=== PATIENT | male | born 1970 | race Caucasian/White ===

== ENCOUNTER 2019-05-13 06:42 | Emergency (ER) | payer OTHER ==
[~2019-05-13] VITALS: Ht 177.8 cm; Wt 99.8 kg
[~2019-05-13 06:42] MED LIST: ADVAIR HFA 230M12 GM INH; CELEXA20 MG PO; HYDROCODONE-APA1 TA1 PO; LAMICTAL100 MG PO; LISINOPRIL20 MG PO; MEN'S MULTI-VI1 EACH PO; NEXIUM40 MG PO; ONDANSETRON HCL4 M2 PO; PROAIR HFA8.5 GM INH; SPIRIVA INH; ZYRTEC10 M4 PO
[2019-05-13] MEDS ORDERED: OMEPRAZOLE40 MG PO (06:59)
[2019-05-13] MEDS ORDERED: LISINOPRIL-HCT1 EAC1 PO (07:01)
[2019-05-13 07:44] LABS: ABSOLUTE NEUTROPHILS 5.9 thou/uL (1.4-8.2); BASOPHILS 0.9 % (0.0-2.0); HEMATOCRIT 40.7 % (42.0-52.0); HEMOGLOBIN 13.5 gm/dL (14.0-18.0); LYMPHOCYTES 17.3 % (24.0-44.0); MCH 28.9 pg (26.0-34.0); MCHC 33.2 g/dL (28.0-37.0); MCV 87.1 fL (80.0-100.0); MONOCYTES 8.9 % (1.0-8.0); PLATELET COUNT 311 thou/uL (150-400); POLYS 67.9 % (36.0-66.0); RBC 4.67 mil/uL (4.50-6.00); RDW 12.6 % (10.5-14.5); WBC 8.7 thou/uL (4.0-11.0)
[2019-05-13 07:47] LABS: URINE BILIRUBIN NEGATIVE (Negative); URINE BLOOD NEGATIVE (Negative); URINE CLARITY CLEAR; URINE COLOR YELLOW; URINE GLUCOSE-RANDOM* NEGATIVE (Negative); URINE KETONES NEGATIVE (Negative); URINE LEUKOCYTES-REFLEX NEGATIVE (Negative); URINE NITRITE-REFLEX NEGATIVE (Negative); URINE PROTEIN (DIPSTICK) NEGATIVE (Negative); URINE SPECIFIC GRAVITY 1.025 (1.005-1.035); URINE UROBILINOGEN 0.2 E.U./dl (0.2-1.0)
[2019-05-13 07:51] LABS: ANION GAP 5 mmol/L (7-16); BUN 14 mg/dL (7-18); CALCIUM 8.2 mg/dL (8.5-10.1); CHLORIDE 105 mmol/L (98-107); CO2 26 mmol/L (21-32); GLUCOSE 126 mg/dL (74-106); POTASSIUM 4.1 mmol/L (3.5-5.1); SODIUM 136 mmol/L (136-145)
[2019-05-13 07:59] LABS: DIRECT BILIRUBIN < 0.1 mg/dL (<0.1-0.3); LIPASE 108 U/L (73-393); SGOT 10 U/L (15-37); SGPT 21 U/L (30-65); TOTAL BILIRUBIN 0.1 mg/dL (<0.1-1.0); TOTAL PROTEIN 6.7 g/dL (6.4-8.2)
[2019-05-13] MEDS ORDERED: NORCO 5-325 TA1 EAC1 PO (10:14)
[2019-05-13] MEDS ORDERED: ZOFRAN ODT4 MG PO (10:14)
[2019-05-13] MEDS ORDERED: NAPROSYN500 MG PO (10:14)
[2019-05-13 10:17] VITALS: BP 105/71
== END 2019-05-13 10:18 | disposition home or self-care (01) ==
LOC: ER 06:42
PROVIDERS: Emergency Medicine
DX: R10.31 Right lower quadrant pain (principal); J45.909 Unspecified asthma, uncomplicated; K21.9 Gastro-esophageal reflux disease without esophagitis; F32.9 Major depressive disorder, single episode, unspecified; F17.210 Nicotine dependence, cigarettes, uncomplicated; Z87.442 Personal history of urinary calculi; Z90.49 Acquired absence of other specified parts of digestive tract; Z90.89 Acquired absence of other organs

== ENCOUNTER 2019-05-15 17:33 | Inpatient (IN) | payer OTHER ==
[~2019-05-15] VITALS: Ht 152.4 cm; Wt 102.5 kg
[2019-05-15 17:33] VITALS: BP 117/92
[~2019-05-15 17:33] MED LIST changes: -ACETAMINOPHEN325 M1 PO; -IBUPROFEN 200200 M1 PO; -OXYCODONE HCL10 MG PO
[2019-05-15 18:32] LABS: ABSOLUTE NEUTROPHILS 5.4 thou/uL (1.4-8.2); BASOPHILS 0.8 % (0.0-2.0); EOSINOPHILS 4.2 % (0.0-3.0); HEMATOCRIT 42.2 % (42.0-52.0); LYMPHOCYTES 26.1 % (24.0-44.0); MCH 28.9 pg (26.0-34.0); MCHC 33.1 g/dL (28.0-37.0); MCV 87.3 fL (80.0-100.0); MONOCYTES 8.5 % (1.0-8.0); PLATELET COUNT 349 thou/uL (150-400); POLYS 60.4 % (36.0-66.0); RBC 4.84 mil/uL (4.50-6.00); RDW 12.7 % (10.5-14.5)
[2019-05-15 18:37] LABS: URINE BILIRUBIN NEGATIVE (Negative); URINE BLOOD NEGATIVE (Negative); URINE CLARITY CLEAR; URINE COLOR YELLOW; URINE GLUCOSE-RANDOM* NEGATIVE (Negative); URINE KETONES NEGATIVE (Negative); URINE LEUKOCYTES-REFLEX NEGATIVE (Negative); URINE NITRITE-REFLEX NEGATIVE (Negative); URINE PROTEIN (DIPSTICK) NEGATIVE (Negative); URINE SPECIFIC GRAVITY <= 1.005 (1.005-1.035); URINE UROBILINOGEN 0.2 E.U./dl (0.2-1.0)
[2019-05-15 18:47] LABS: CALCIUM 9.4 mg/dL (8.5-10.1); CREATININE 1.2 mg/dL (0.7-1.3); POTASSIUM 4.1 mmol/L (3.5-5.1)
[2019-05-15 18:53] LABS: ALBUMIN 3.5 g/dL (3.4-5.0); TOTAL BILIRUBIN 0.2 mg/dL (<0.1-1.0); TOTAL PROTEIN 7.8 g/dL (6.4-8.2)
[2019-05-15 21:44] VITALS: BP 115/76
[2019-05-15 22:01] VITALS: BP 115/76
[2019-05-15 22:14] VITALS: BP 122/87
[2019-05-16] VITALS (8 sets, daily range): BP systolic 113–128; BP diastolic 77–93
--- NOTE | 2019-05-16 04:06 | NUR ---
admit Pt admitted for appendicitis, to have lap appy later this afternoon. Pt oriented to room, call light system and plan of care. Ivf's infusing as ordered. Pt has a clear liquid diet ordered tolerating in small amounts. denies pain or need for pain medication or tylenol. scd's and isp supplied to educate on use when pt wakes. voiding qs, afebrile, vs wnl.
[2019-05-16 05:47] LABS: HEMATOCRIT 39.9 % (42.0-52.0); HEMOGLOBIN 13.4 gm/dL (14.0-18.0); MCH 29.3 pg (26.0-34.0); MCHC 33.6 g/dL (28.0-37.0); MCV 87.1 fL (80.0-100.0); RBC 4.59 mil/uL (4.50-6.00); RDW 12.7 % (10.5-14.5)
[2019-05-16 06:18] LABS: ALBUMIN 3.1 g/dL (3.4-5.0); CALCIUM 8.5 mg/dL (8.5-10.1); MAGNESIUM 2.1 mg/dL (1.8-2.4); PHOSPHORUS 4.5 mg/dL (2.5-4.9)
--- NOTE | 2019-05-16 10:12 | NUR ---
Nutrition: Assessed due to consult for "surgery". Admit: abdominal pain, rule out appendicitis. Pt to have surgery later today for lap appendectomy. Was previously on clear liquid diet leading up to surgery; now NPO. Per daily 12/12 labs, K+, Mag, and Phos electrolytes all WNL. RD educated pt on oral nutrition supplement that is compatible with clear liquid diet if able to resume diet when medically indicated/safe per provider discretion pending return of GI function s/p surgery. Also instructed pt on general healthy nutrition and foods to choose post surgery. Pt had no nutrition concerns or further questions/education needs. Will keep as low nutrition risk, but monitor for any prolonged NPO status.
--- NOTE | 2019-05-16 12:49 | NUR ---
PT JUST TAKEN DOWN FOR SURGERY.
[2019-05-16] MEDS ORDERED: ACETAMINOPHEN325 M1 PO (14:11)
[2019-05-16] MEDS ORDERED: OXYCODONE HCL10 MG PO (14:11)
[2019-05-16] MEDS ORDERED: IBUPROFEN 200200 M1 PO (14:11)
--- NOTE | 2019-05-16 14:41 | NUR ---
PT ADMITTED RELATED TO APPENDICITIS. CM REVIEWED CHART AND SPOKE WITH CARE TEAM. CM MET WITH PT AT BEDSIDE THIS DAY. PT IS A&O X4. CM ROLE INTRODUCED. PT INDICATED HE LIVES IN A HOUSE WITH HIS SIG OTHER WITH 6 STEPS TO ENTER AND NO STEPS INSIDE. 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 PT INDICATED NO DME OR HH SERVICES. PT INDICATED HE PLANS TO RETURN HOME ONCE MEDICALLY STABLE. CM TO FOLLOW INIDCIATED WITH DC PLANNING.
--- NOTE | 2019-05-20 15:27 | H ---
[facility] [place] [address] [place] [address] HISTORY AND PHYSICAL Name: ALESSANDRA PERRY Javier Room #: 449-I [facility] IN M.R.#: [id number] Admission: 05/15/19 Attend Phys: Slava Etienne MD Discharge: 05/16/19 Date of : 70 Report #: [id number] THIS REPORT FOR: //name// CC: Slava Crisostomo DATE OF SERVICE: 05/15/2019 CONSULTING PHYSICIAN: Dr. Etienne. CHIEF COMPLAINT: Abdominal pain. HISTORY OF PRESENT ILLNESS: The patient is a pleasant 49-year-old gentleman who developed right lower quadrant abdominal pain on Monday. He presented to the ER and a CT scan was performed, demonstrated dilated appendix, but no periappendiceal inflammation. He was discharged home. The patient was seen by PCP today and a CT scan was ordered that redemonstrated dilated appendix and he suggested he come to the ER. Per the patient, he developed abdominal pain on Monday in the right lower quadrant. It was sharp and constant. He cannot recall any exacerbating or relieving factors. The pain worsened on Monday and again on Monday. That is when he presented to the ER. He denies any nausea or vomiting. He denies fevers, chills, night sweats, chest pain. He endorses chronic shortness of air to his smoking history. No exacerbation recently. He does endorse feeling like he was constipated, so he tried a bowel regimen on his own and had a successful bowel movement without resolution of the pain. He denies any blood within the stool as well. PAST MEDICAL HISTORY: 1. Hypertension. 2. Asthma. 3. Obesity. 4. Anxiety. PAST SURGICAL HISTORY: 1. Cholecystectomy. 2. Umbilical hernia repair. SOCIAL HISTORY: Previous smoker, he quit in 2016 and now he only vapes. He endorses drinking socially. Denies any recreational drug use. 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 FAMILY HISTORY: Grandparent with leukemia. He denies any bleeding or clotting disorders in his family. [facility] [address] [place] [address] HISTORY AND PHYSICAL Name: ORLANDOALESSANDRA Room #: 449-I [facility] IN ..#: [id number] Admission: 05/15/19 Attend Phys: Slava Etienne MD Discharge: 05/16/19 Date of : 70 Report #: [id number] REVIEW OF SYSTEMS: CONSTITUTIONAL: No fever. No chills. HEENT: Denies blurring of vision, double vision, headaches, hearing loss, sinus drainage or sore throat. Denies blurring of vision, double vision, headaches, hearing loss, sinus drainage or sore throat. CARDIOVASCULAR: Denies chest pain, palpitations, orthopnea or paroxysmal nocturnal dyspnea. RESPIRATORY: Denies cough, wheezing, hemoptysis, or shortness of air. GASTROINTESTINAL: See above and below. GENITOURINARY: Denies dysuria or hematuria or kidney stones. No urinary frequency, urgency or incontinence. Denies dysuria or hematuria or kidney stones. No urinary frequency, urgency or incontinence. MUSCULOSKELETAL: No joint pain. No muscle pain. NEUROLOGICAL: Denies tremor, stroke or seizure. Denies tremor, stroke or seizure. HEMATOLOGIC / LYMPHATICS: Denies easy bruising, easy bleeding or enlarged lymph nodes. SKIN: No rash or ulceration. ENDOCRINE: No heat or cold intolerance PSYCHIATRIC: Denies depression, anxiety, or schizophrenia. PHYSICAL EXAMINATION: VITAL SIGNS: Temperature is 36.6, blood pressure is 117/92, pulse ox is 95% on room air, heart rate is 73, respiratory rate 19. GENERAL: No apparent distress, alert and oriented x3. HEENT: PERRLA, EOMI, MMM, NCAT NECK: Supple. No LAD CARDIOVASCULAR: Regular rhythm and rate. Hemodynamically stable. Normal capillary refill. Regular rhythm and rate. Hemodynamically stable. Normal capillary refill. PULMONARY: Nonlabored. Clear to auscultation bilaterally ABDOMEN: Patient is soft, tender to palpation exquisitely in the right lower quadrant, positive Rovsing sign. Positive voluntary guarding in the right lower quadrant. Otherwise, nondistended without guarding, rebound or rigidity in the other quadrants. No obvious hernias appreciated. EXTREMITIES: Calves soft, nontender, no edema. SKIN: No rashes or bruises. PSYCHIATRIC: Normal mood and affect Normal mood and affect NEUROLOGICAL: Grossly intact. CN II-XII grossly intact. MUSCULOSKELETAL: 5/5 strength in upper extremities and lower extremities bilaterally LYMPHATICS: No cervical, inguinal, or supraclavicular lymphadenopathy. LABORATORY DATA: Sodium is 139, potassium 4.1, creatinine 1.2, total bilirubin 0.2, AST 15, ALT 24, alkaline phosphatase is 87, albumin 3.5, lipase is 128. White count is 9, hemoglobin is 14, hematocrit is 42.2, platelets are 349. [facility] [address] [place] [address] HISTORY AND PHYSICAL Name: ALESSANDRA PERRY Room #: 449-I [facility] IN Derrick#: [id number] Admission: 05/15/19 Attend Phys: Slava Etienne MD Discharge: 05/16/19 Date of : 70 Report #: [id number] Urinalysis is negative. IMAGING: CT of the abdomen and pelvis, impression, please see official report, but did demonstrate dilated appendix without periappendiceal fat stranding. ASSESSMENT AND PLAN: The patient is a very pleasant 49-year-old gentleman with abdominal pain and dilated appendix on CT scan. DIAGNOSES: 1. Probable acute appendicitis. 2. Abdominal pain. 3. Significant smoking history. 4. Asthma. 5. Hypertension. PLAN: 1. Admit to surgery. 2. Clear liquid diet. N.p.o. at midnight. 3. IV Rocephin and Flagyl. 4. Recheck labs in the morning. 5. IV fluid resuscitation while n.p.o. 6. Discussed differential diagnosis with the patient including acute appendicitis versus mesenteric lymphadenitis versus musculoskeletal versus other bowel etiology (IBS/inflammatory bowel disease/etc.). 7. Given the constellation of findings with his abdominal exam and dilated appendix on CT scan and his history being all consistent with appendicitis, I would recommend diagnostic laparoscopy with likely laparoscopic appendectomy. The patient and his were agreeable to this. <ELECTRONICALLY SIGNED> By: Slava Etienne MD 05/20/19 1527 23 Slava Etienne MD /nt
--- NOTE | 2019-05-20 15:27 | O ---
[facility] [place] [address] [place] [address] OPERATIVE REPORT Name: ALESSANDRA PERRY Javier Room #: 449-I [facility] IN M.R.#: [id number] Admission: 05/15/19 Attend Phys: Slava Etienne MD Discharge: 05/16/19 Date of : 70 Report #: [id number] THIS REPORT FOR: //name// CC: Slaav Crisostomo DATE OF SERVICE: 05/16/2019 PROCEDURE PERFORMED: Laparoscopic appendectomy. POSTOPERATIVE DIAGNOSIS: Acute appendicitis. POSTPROCEDURE DIAGNOSIS: Acute appendicitis. SURGEON: Dr. Etienne. RESIDENT ASSOCIATE: None. ANESTHESIA: 1. General. 2. Local. ESTIMATED BLOOD LOSS: Less than 5 mL. URINE OUTPUT: Not measured. COMPLICATIONS: None. FINDINGS: 1. The patient had a thickened, dilated appearing appendix with injected serosa concerning for acute appendicitis. 2. No other gross intra-abdominal abnormalities appreciated. SPECIMENS: Appendix. INDICATIONS: The patient presented twice now with abdominal pain and has had 2 CT scans, both demonstrating a dilated appendix. He was consented for laparoscopic appendectomy. The risks, benefits and alternatives of the procedure were discussed with the patient and the patient's . The risks discussed included but were not limited to the risk of bleeding, infection, conversion to open, missed diagnosis, not relieving his pain with surgery, wound infection, postoperative abscess, postoperative ileus, postoperative hernia, damage to any intraabdominal organ including small bowel, large bowel, stomach, kidney, liver, spleen, etc., blood vessels, nerves, anesthesia (cardiac, pulmonary, neurologic type complications), and . The patient had the opportunity to ask questions. All questions were answered to the best of my [facility] [address] [place] [address] OPERATIVE REPORT Name: ALESSANDRA PERRY Javier Room #: 449-I [facility] IN M.R.#: [id number] Admission: 05/15/19 Attend Phys: Slava Etienne MD Discharge: 05/16/19 Date of : 70 Report #: [id number]. At the end of the discussion, he did wish to proceed with surgery. DESCRIPTION OF PROCEDURE: After informed consent was obtained as above, the patient was taken to the operating room and placed in supine position. General anesthesia was induced. Preprocedure antibiotics were administered and anterior abdomen was prepped and draped in the usual sterile fashion. A timeout was performed. A 5 mm supraumbilical incision was made. After local anesthetic was injected, Veress needle was inserted. Pneumoperitoneum was created. A 5 mm port was passed and the laparoscope was inserted. There were no immediate gross abnormalities appreciated. Next, the following ports were placed in standard fashion after injection of local anesthetic under direct visualization and a 5 mm suprapubic port and a 12 mm left lower quadrant port. There were no adverse events while placing the ports. Next, the appendix was identified, it was grasped and pulled into the field of view. This was coming off medially and immediately. The appendix appeared as above. I do believe that this was likely a source of pain. There was a window made in the mesoappendix at the base of the cecum. A laparoscopic ANGELICA blue load stapler was used to transect the appendix at the base of the cecum. Hemostasis was present. Staple line was intact. Next, the mesoappendix was transected with a white load. This was done successfully and hemostasis was present. Before firing any staple load, it was determined that there was no terminal ileum or other critical structures within the grasp stapler each time and this was successful each time. The staple lines were closely inspected and found to be hemostatic and intact. The patient had no free fluid. The patient had no abscess, no perforation. The patient was hemostatic. Next, the appendix was passed into a laparoscopic retrieval bag and removed out the patient's 12 mm port site under direct visualization. The 12 mm port site was closed using a PMI device and laparoscopic technique using 0 Vicryl in interrupted fashion. The right lower quadrant was reinspected and found to be hemostatic. Pneumoperitoneum was released. The ports were removed. They were hemostatic. The skin was closed using 4-0 Monocryl in a subcuticular interrupted fashion. The abdomen was clean and dry and Dermabond was applied. The patient tolerated the procedure well. There were no adverse events throughout the course of procedure. <ELECTRONICALLY SIGNED> By: Slava Etienne MD 05/20/19 1527 1718 194 Slava Etienne MD /nt
--- NOTE | 2019-05-20 16:06 | PATH ---
[facility] [address] [place] [address] PATHOLOGY RPT PROCEDURE Name: TERENCE PERRY Room #: 449-I [facility] IN M.R.#: [id number] Admission: 05/15/19 Date of : 70 Discharge: 05/16/19 Report #: [id number] Path Case #: [id number] [facility] Accession Number: [id number] . 01 Material submitted: . appendix - APPENDIX . 01 Clinical history: . Acute appendicitis . 02 Diagnosis: Appendix, appendectomy: - Marked acute appendicitis associated with complete ulceration of the surface. - Fibrous obliteration of the entire tip. - Proximal margin showing no diagnostic abnormalities. (IUV:galen; 05/20/2019) QMS 05/20/2019 1434 Local . 02 Electronically signed: . Mayi Barnhart MD, Pathologist NPI- [id number] . 01 Gross description: . The specimen is received in formalin, labeled "Terence Perry, appendix" and consists of an appendix measuring 8.8 in length and up to 1.0 in diameter with mesoappendix measuring 2.3 thick. The serosa is pink-moctezuma smooth shiny. The margin is closed with a line of martha and inked black. Sectioning reveals a dilated lumen containing brown fecal material and no fecaliths. [employer] sections are submitted in A1. (SDY; 05/17/2019) SYU/SYU 05/17/2019 1156 Local . 02 Pathologist provided ICD-10: K35.80 . 02 CPT . 531166 Specimen Comment: A courtesy copy of this report has been sent to [phone], [phone] Specimen Comment: [phone] Specimen Comment: Report sent to and Performed at: [address] [id number] MD Golden Taylor MD Phone: [phone] Performed at: [address] [place] [address] [facility] [place] [address] PATHOLOGY RPT PROCEDURE Name: TERENCE PERRY Room #: 449-I [facility] IN M.R.#: [id number] Admission: 05/15/19 Date of : 70 Discharge: 05/16/19 Report #: [id number] Path Case #: [id number] [facility] [address] [place], [place] [id number] MD Mayi Barnhart MD Phone: [phone]
== END 2019-05-16 19:17 | disposition home or self-care (01) | DRG 342 ==
LOC: ER 17:33 → EROBS 20:15 → 4W 20:15 → ENTRNSPT 05-16 19:05 → 4W 05-16 19:17
PROVIDERS: Physician Assistant; ADMIT Surgery
PROC: 0DTJ4ZZ Resection of Appendix, Percutaneous Endoscopic Approach (ICD-10-PCS; principal; 2019-05-16)
DX: K35.80 Unspecified acute appendicitis (principal); Z68.41 Body mass index [BMI] 40.0-44.9, adult; I10 Essential (primary) hypertension; K21.9 Gastro-esophageal reflux disease without esophagitis; F32.9 Major depressive disorder, single episode, unspecified; F41.9 Anxiety disorder, unspecified; J45.909 Unspecified asthma, uncomplicated; E66.9 Obesity, unspecified; Z90.49 Acquired absence of other specified parts of digestive tract; Z87.442 Personal history of urinary calculi; Z79.899 Other long term (current) drug therapy; Z87.891 Personal history of nicotine dependence; Z80.6 Family history of leukemia
CPT/HCPCS: 10040; 10045; 50010; 50101; 50249; 50411; 50555; 50558; 50739; 50740; 52265; 53307; 53310; 53312; 54022; 54118; 56525; 56526; 62110; 62900; 70005

== ENCOUNTER → 2019-05-15 | Outpatient (CLI) | payer OTHER ==
[~2019-05-15] MED LIST changes: +ACETAMINOPHEN325 M1 PO; +IBUPROFEN 200200 M1 PO; +LISINOPRIL-HCT1 EAC1 PO; +NAPROSYN500 MG PO; +NORCO 5-325 TA1 EAC1 PO; +OMEPRAZOLE40 MG PO; +OXYCODONE HCL10 MG PO; +ZOFRAN ODT4 MG PO
== END ==
LOC: CAT 16:33
DX: R10.31 Right lower quadrant pain (principal)